=== PATIENT | female | born 1965 | race American Indian/Alaskan Native ===

== ENCOUNTER 2017-03-17 07:52 | Day surgery (SDC) | payer MEDICARE ==
[~2017-03-17 07:52] MED LIST: ANCEF/STERILE WATER 2 GM/20 ML 2 GM/20 ML SYRINGE IV NR; NACL 0.9% 1000 ML 1,000 ML IV SCH
[2017-03-17] MEDS ORDERED: PROTAMINE SULFATE ONE (07:55)
[2017-03-17] MEDS ORDERED: HEPARIN 10,000 UNITS/10 ML ONE (07:55)
[2017-03-17] MEDS ORDERED: MARCAINE 0.5% 30 ML INFILTRATI ONE (07:55)
[2017-03-17] MEDS ORDERED: NACL 0.9% 500 ML 500 ML ONE (07:56)
--- NOTE | 2017-03-17 09:17 | Anesthesia Consultation ---
Anesthesia Consult and Med Hx Date of service: 03/17/17 - Airway Anesthetic Teeth Evaluation: Good ROM Head & Neck: Adequate Mental/Hyoid Distance: Adequate Mallampati Class: Class II Intubation Access Assessment: Probably Good - Pulmonary Exam CTA: Yes - Cardiac Exam Cardiac Exam: RRR - Pre-Operative Health Status ASA Pre-Surgery Classification: ASA4 Proposed Anesthetic Plan: General - Pulmonary Hx Smoking: Yes Hx Asthma: No Hx Pneumonia: No Hx Sleep Apnea: Yes (not using cpap) - Cardiovascular System Hx Hypertension: Yes (bp elevated in ER) - Central Nervous System Hx Psychiatric Problems: No - Endocrine Hx End Stage Renal Disease: Yes (dialysis MWF) - Other Systems Hx Cancer: No
--- NOTE | 2017-03-17 09:18 | Anesthesia Day of Surgery ---
Anesthesia Day of Surgery - Day of Surgery Patient Examined: Yes Patient H&P Reviewed: Yes Patient is NPO: Yes
[2017-03-17 09:20] LABS: Basophils % (Auto) 0.9 % (0.0-1.8); Eosinophils % (Auto) 12.1 % (0.0-4.3); Hematocrit 41.1 % (30.3-42.9); Hemoglobin 13.1 gm/dl (10.1-14.3); Mean Corpuscular HGB Conc 32 % (30-34); Mean Corpuscular Hemoglobin 27 pg (28-32); Mean Corpuscular Volume 85 fl (79-97); Platelet Count 191 K/mm3 (140-440); Red Blood Count 4.82 M/mm3 (3.65-5.03); Red Cell Distribution Width 15.1 % (13.2-15.2); White Blood Count 11.7 K/mm3 (4.5-11.0)
[2017-03-17 09:35] LABS: Calcium 8.9 mg/dL (8.4-10.2); Chloride 100.6 mmol/L (98-107); Potassium 4.8 mmol/L (3.6-5.0)
[2017-03-17] MEDS ORDERED: SUBLIMAZE ONE (11:51)
[2017-03-17] MEDS ORDERED: XYLOCAINE MPF 2% ONE (11:51)
[2017-03-17] MEDS ORDERED: DIPRIVAN 10 MG/ML IV ONE (11:51)
[2017-03-17] MEDS ORDERED: ZOFRAN IV PRN (12:18)
[2017-03-17] MEDS ORDERED: DILAUDID IV PRN (12:18)
[2017-03-17] MEDS ORDERED: PERCOCET 5/325 PO PRN (12:30)
[2017-03-17] MEDS ORDERED: HEPARIN 10,000 UNITS/10 ML 2,000 UNIT in NACL 0.9% 500 ML 500 ML IR ONE (12:41)
[2017-03-17] MEDS ORDERED: NACL 0.9% IR ONE (12:41)
[2017-03-17] MEDS ORDERED: MARCAINE 0.5% INFILTRATI ONE (12:41)
[2017-03-17] MEDS ORDERED: RIFADIN ONE (13:05)
[2017-03-17] MEDS ORDERED: RIFADIN 600 MG in NACL 0.9% 50 ML IR ONE (13:30)
[2017-03-17] MEDS ORDERED: ZOFRAN ONE (13:48)
--- NOTE | 2017-03-17 14:00 | Short Stay Summary ---
Short Stay Documentation Date of service: 03/17/17 Narrative H&P: See H&P - Allergies and Medications Current Medications: Allergies Fish Containing Products Allergy (Verified 03/16/17 09:54) Anaphylaxis Home Medications Medication Instructions Recorded Confirmed Last Taken Type Albuterol Sulfate [Ventolin HFA] 2 puff IH Q4H PRN 08/07/13 02/16/14 03/17/17 History diphenhydrAMINE [Benadryl CAP] 2 tab HS PRN 08/07/13 02/16/14 03/16/17 History Aspirin [Aspirin TAB] 325 mg PO QDAY #30 tablet 08/09/13 02/16/14 Unknown Rx Atorvastatin (Nf) [Lipitor] 20 mg PO QHS #30 tab 08/09/13 02/16/14 03/17/17 Rx Ferrous Sulfate [Feosol 325 MG tab] 325 mg PO BID #60 tablet 08/09/13 02/16/14 03/16/17 Rx amLODIPine [Norvasc] 10 mg PO DAILY #30 tablet 08/09/13 02/16/14 Unknown Rx hydrALAZINE [Apresoline TAB] 25 mg PO Q8H #90 tab 08/09/13 02/16/14 03/17/17 Rx HYDROcodone/APAP 5-325 [[place] 1 each PO Q6H PRN #30 tablet 02/17/14 Unknown Rx 5-325 mg TAB] amLODIPine [Norvasc] 10 mg PO DAILY #30 tab 02/17/14 03/17/17 Rx cloNIDine [Catapres] 0.1 mg PO Q8HR #90 tablet 02/17/14 03/17/17 Rx hydrALAZINE [Apresoline TAB] 50 mg PO Q8HR #90 tablet 02/17/14 03/16/17 Rx Active Medications Hydromorphone HCl (Dilaudid) 0.5 mg IV Q10MIN PRN PRN Reason: Pain , Severe (7-10) Stop: 03/17/17 23:59 Cefazolin Sodium (Ancef/Sterile Water 2 Gm/20 Ml) 2 gm in 20 mls @ 80 mls/hr IV PREOP NR PRN Reason: Protocol Stop: 03/17/17 16:00 Sodium Chloride (Nacl 0.9% 1000 Ml) 1,000 mls @ 42 mls/hr IV DIRECT GARCIA Last Admin: 03/17/17 09:57 Dose: 42 mls/hr - Brief post op/procedure progress note Date of procedure: 03/17/17 Pre-op diagnosis: ESRD Post-op diagnosis: same Procedure: Creation of Left Brachial Artery to Axillary Vein AV Graft with 6 Mm Bovine Graft Anesthesia: MOISES Surgeon: DAVON JEFFERS Estimated blood loss: minimal Pathology: none Condition: stable - Disposition Condition at discharge: Good Disposition: [id number]-01 TO HOME OR SELFCARE Short Stay Discharge Plan Activity: other (no heavy lifting with left arm) Wound: open to air, keep clean and dry, other (okay to wash the wound with soap and water but do not soak in water) Follow up with: DAVON JEFFERS MD [Staff Physician] - 14 Days Prescriptions: HYDROcodone/ACETAMINOPHEN [[place] 7.5-325 Tablet] 1 each PO Q6HR PRN #40 tablet PRN Reason: Pain
--- NOTE | 2017-03-17 14:01 | Operative Report ---
Operative Report Operative Report: Date of procedure: 03/17/2017 Pre-operative diagnosis: End-stage renal disease Post-operative diagnosis: Same Procedure(s): 1. Creation of Left Brachial Artery to Axillary Vein AV Graft with 6 mm Bovine Graft Surgeon: Tima Miller MD Garment Mender: None Anesthesia: General Endotracheal Anesthesia EBL: Minimal Counts: Correct Complications: None Condition: Stable Findings: Successful Creation of Left Arm AV Graft Specimen: None Indication: The patient is a 51-year-old female with history of end-stage renal disease currently on hemodialysis to right internal jugular permacath. She is in need of long-term access to but did not have adequate vein for creation of fistula. She is in need of an AV graft. She was given the risks, benefits, and alternative procedures and consented to procedure. Description of Procedure: The patient was brought to the operating room and laid in supine position after general endotracheal anesthesia was achieved the left arm was prepped and draped in normal sterile fashion. A longitudinal incision was made on the medial aspect of the arm just proximal to the antecubital crease and carried down to the brachial artery using sharp dissection. The brachial artery was dissected out circumferentially both proximally and distally and controlled with vessel loops. A second incision was created in longitudinal fashion on the medial aspect of the arm just distal to the axillary crease and carried down to the axillary vein using sharp dissection. Axillary vein was dissected out circumferentially and controlled with a vessel loop. I then used a Eli- Wick tunneler to tunnel from the brachial artery incision to the axillary vein incision and then put an 6 mm bovine through the tunnel. I infused with heparinized saline to ensure that it was not twisted or kinked. I put the brachial artery vessel loops on tension controlling the flow and then created an arteriotomy using an 11 blade and Duke scissors. I beveled the graft and created an end-to-side anastomosis using 6-0 Prolene running fashion. I clamped the graft just proximal to the anastomosis and then released the vessel loops restoring flow in the brachial artery. I placed quick clot in incision to achieve hemostasis. I cut the proximal end of the graft to the appropriate length and beveled the graft in preparation for a venous anastomosis. I controlled the axillary vein a Satinsky clamp and created a venotomy using an 11 blade and Duke scissors. I created an end to side anastomosis using a 6-0 Prolene in running fashion. Prior to completing the anastomosis I flushed the graft to ensure there was no thrombus and then completed the anastamosis. I released all clamps allowing flow into the AV graft which had an excellent thrill. I packed the wound with quick clot to achieve hemostasis. I anesthetized both wounds with Marcaine and then closed both wounds in 2 layers using 3-0 Vicryl in running fashion in the deep dermal layer and 4-0 Monocryl in running fashion the subcuticular layer. I dressed both wounds with Surgicel. The patient tolerated the procedure well all sponge needle and instrument counts were correct the patient was taken to recovery in stable condition.
[2017-03-17] MEDS ORDERED: NORCO 7.5/325 PO PRN (14:40)
[2017-03-17 15:08] VITALS: BP 121/76
== END 2017-03-17 15:45 | disposition home or self-care (01) ==
LOC: OR 07:52
PROVIDERS: ATTEND Surgery Vascular Surgery
DX: I12.0 Hypertensive chronic kidney disease with stage 5 chronic kidney disease or end stage renal disease (principal); N18.6 End stage renal disease; M10.9 Gout, unspecified; F17.210 Nicotine dependence, cigarettes, uncomplicated; Z79.82 Long term (current) use of aspirin; Z79.899 Other long term (current) drug therapy
CPT/HCPCS: 36415; 36830; 80048; 81025; 85025; C1768; J0690; J1644; J2405; J2704; J2720; J3010; J3490; J7030; J7040

== ENCOUNTER 2018-07-03 05:27 | Emergency (ER) | payer MEDICARE ==
[2018-07-03] MEDS ORDERED: PROVENTIL IH ONE (05:44)
[2018-07-03] MEDS ORDERED: DUONEB *Not for PRN Use IH ONE (05:44)
[2018-07-03] MEDS ORDERED: DECADRON IM STA (08:57)
--- NOTE | 2018-07-03 08:57 | Emergency Department Report ---
HPI - General Chief Complaint: Adult Asthma Time Seen by Provider: 07/03/18 08:46 - HPI HPI: This is a 52-year-old female here report that she has shortness of breath and reports wheezing and cough with thick white mucus. She said it started 7 days ago with is a drainage and postnasal drip and she ran out of her albuterol so she is normally gets her doctor and would like a refill on her albuterol. She takes Symbicort and albuterol for asthma. Patient has a history of high cholesterol, high blood pressure. Last menstrual period was 06/08/2018. Denies any nausea vomiting, denies any fever or chills. Denies any chest pain. Denies any sore throat but reports nasal congestion and drainage. No medication taken prior to coming to the emergency room and her pain is 0/10 ED Past Medical Hx - Past Medical History Previous Medical History?: Yes Hx Hypertension: Yes Hx Congestive Heart Failure: No Hx Diabetes: No Hx Kidney Stones: (dialys ) Hx Asthma: Yes Hx COPD: No Hx HIV: No Additional medical history: Gout - Surgical History Past Surgical History?: Yes Additional Surgical History: c-sections - Family History Family history: hypertension - Social History Smoking Status: Current Every Day Smoker Substance Use Type: None - Medications Home Medications: Home Medications Medication Instructions Recorded Confirmed Last Taken Type Aspirin [Aspirin TAB] 325 mg PO QDAY #30 tablet 08/09/13 06/16/18 06/15/18 Rx 325mg Ferrous Sulfate [Feosol 325 MG tab] 325 mg PO BID #60 tablet 08/09/13 06/16/18 06/15/18 Rx 325mg amLODIPine [Norvasc] 10 mg PO DAILY #30 tablet 08/09/13 06/16/18 06/16/18 Rx 10mg Atorvastatin Calcium [Lipitor] 20 mg PO QDAY 03/23/17 06/16/18 06/15/18 History 20mg cloNIDine [Catapres] 0.1 mg PO QDAY 03/23/17 06/16/18 06/16/18 History 0.1mg Albuterol Sulfate [Ventolin HFA] 2 puff IH Q4H PRN #1 hfa.aer.ad 03/24/17 06/16/18 06/15/18 Rx 1 Budesonide/Formoterol Fumarate 10.2 gm IH BID 30 Days hfa.aer.ad 03/24/17 06/16/18 06/15/18 Rx [Symbicort 80-4.5 Mcg Inhaler] 1 Renvela 1,600 mg PO BID 06/16/18 06/16/18 06/15/18 History 1600mg ALBUTEROL Inhaler(NF) [VENTOLIN 2 puff IH Q6H PRN 1 Days #1 inha 07/03/18 Unknown Rx Inhaler(NF)] Azithromycin [Zithromax Z-GUNNER] 250 mg PO DAILY 5 Days #1 pkg 07/03/18 Unknown Rx Cetirizine HCl [ZyrTEC] 10 mg PO QAM 14 Days #14 capsule 07/03/18 Unknown Rx predniSONE [Deltasone] 50 mg PO QDAY 3 Days #3 tab 07/03/18 Unknown Rx ED Review of Systems ROS: Stated complaint: ASTHMA ATTACK Other details as noted in HPI Constitutional: denies: chills, fever ENT: congestion. denies: ear pain, throat pain Respiratory: cough, shortness of breath, SOB with exertion, wheezing. denies: SOB at rest Cardiovascular: denies: chest pain, palpitations, edema, syncope Gastrointestinal: denies: abdominal pain, nausea, vomiting Musculoskeletal: denies: back pain, joint swelling, arthralgia, myalgia Skin: denies: rash Neurological: denies: headache Physical Exam - Physical Exam Vital Signs: Vital Signs 07/03/18 05:36 Temperature 98.3 F Pulse Rate 79 Respiratory 18 Rate Blood Pressure 177/90 O2 Sat by Pulse 98 Oximetry General: This is a 52-year-old female here for asthma flareup. She is stable and in no acute distress. Physical Exam: Head: Normocephalic atraumatic Ears:BIateral congested without erythema. Clear drainage, Lito EAC with normal exam. No mastoid bone tenderness. Mouth: Moist, no pharyngeal erythema or exudate . UVULA midline and oral airways patent. No peritonsillar abscess Neck: Nontender to palpate, supple, normal range of motion. No adenopathy. No c- spine tenderness. Nose: Bilateral nasal mucosa pale and boggy with clear drainage. Maxillary and frontal sinuses non- tender to palpate. Eyes: Bilateral Sclerae and conjunctiva without injection. Bilateral pupils equal and reactive to light. Bilateral lids are normal. Normal accommodation.BEOMI Lungs: Scattered wheezes in the upper lung marquez, no rhonchi or rales. Normal work of breathing and no chest wall tenderness CV: S1, S2. Regular rate and rhythm negative murmur. Capillary refill is less than 3 seconds Abdomen: Nontender to palpation in all quadrants: No guarding or rebound tenderness. Positive bowel sounds in all quadrants Extremity: No clubbing, cyanosis or edema. +2 pulses in all extremities and no neurovascular compromise Skin: Clean dry and intact, no rashes or lesions Psych: Normal mood and behavior ED Course Vital Signs 07/03/18 05:36 Temperature 98.3 F Pulse Rate 79 Respiratory 18 Rate Blood Pressure 177/90 O2 Sat by Pulse 98 Oximetry - Reevaluation(s) Reevaluation #1: 07/03/18 08:57 Primary to evaluation patient was given albuterol 2.5 mg and Atrovent 1 mg nebulizer in triage area and she reports that she feels much better. She is a minimal wheeze into the upper lung marquez. Denies any shortness of breath or chest pain. Patient also just received Decadron 10 mg IM. ED Medical Decision Making - Medical Decision Making This is a 52-year-old female here reports that she has asthma flare. She was given an albuterol 2.5 mg and Atrovent 1 mg the present emergency room and she says she is feeling a lot better. Patient received Decadron 10 mg IM and she has a primary care physician where she says she will be following up with. I discussed with her that I will put her on some antibiotics that she has been having upper respiratory symptoms for a week and she has multiple comorbidity to include nicotine abuse. I voiced to her that she needs to stop smoking. Patient was understanding. Vital signs stable she is afebrile and patient discharged home in stable condition with prescription for Zyrtec, Zithromax, albuterol, prednisone 3 days as she has high blood pressure and to continue her Flonase. I discussed with her she needs to follow up with her primary care physician in 2 days and she voiced understanding. Vision discharged home in stable condition with her family. - Differential Diagnosis asthma exacerbation,URI withcough and congestion, rhinitis/sinusitis Critical care attestation.: If time is entered above; I have spent that time in minutes in the direct care of this critically ill patient, excluding procedure time. ED Disposition Clinical Impression: URI with cough and congestion, Nicotine abuse Acute asthma exacerbation Qualifiers: Asthma severity: mild Asthma persistence: intermittent Qualified Code(s): J45.21 - Mild intermittent asthma with (acute) exacerbation Disposition: TO HOME OR SELFCARE Is pt being admited?: No Does the pt Need Aspirin: No Condition: Stable Instructions: Asthma (ED), Upper Respiratory Infection (ED), How to Stop Smoking (ED) Additional Instructions: Please follow up with a primary care physician and clin asst in 2 days. Take medication as prescribed Please take a blood pressure medication when he go home Please stop smoking as this can cause asthma flares Use albuterol as prescribed Increase her fluid intake If symptoms worsens, return to the emergency room Referrals: LUKAS ESCOBAR MD [Primary Care Provider] - 07/05/18 Forms: Accompanied Note, Work/School Release Form(ED)
[2018-07-03 09:28] VITALS: BP 160/90
== END 2018-07-03 09:28 | disposition home or self-care (01) ==
LOC: ED 05:27
DX: J45.21 Mild intermittent asthma with (acute) exacerbation (principal); J06.9 Acute upper respiratory infection, unspecified; F17.200 Nicotine dependence, unspecified, uncomplicated; I10 Essential (primary) hypertension; Z79.82 Long term (current) use of aspirin; Z91.013 Allergy to seafood
CPT/HCPCS: 94640; 96372; 99282; J1100